=== PATIENT | female | born 1965 | race Caucasian/White ===

== ENCOUNTER → 2019-06-14 13:00 | Outpatient (CLI) | payer BC, SELFPAY ==
--- NOTE | 2019-06-14 13:06 | BI_ITS ---
MAMMOGRAPHY - BILATERAL SCREENING REASON FOR EXAM: Female, 54 years old. Routine annual screening examination. PERTINENT HISTORY: Non-contributory. TECHNIQUE: Digital bilateral breast miguel (3D mammographic acquisition) in the CC and MLO projections. 2-D mediolateral oblique (MLO) and craniocaudad (CC) views of both breasts were obtained. CAD: Full Field Digital Mammography with Computer Added Detection was performed. COMPARISON: Comparison is made with prior examination dated September 23, 2016. FINDINGS: Breast Composition: There are scattered areas of fibroglandular density. There are no dominant masses or suspicious calcifications. Stable small benign-appearing bilateral axillary lymph nodes. No other significant abnormalities are identified. There has been no significant change since the prior study. BI/SCREEN MAMM (CAD) W/MIGUEL BILAT IMPRESSION: Stable bilateral screening mammogram. Yearly follow-up mammogram recommended. (A) ASSESSMENT CATEGORY: BIRADS Category 2: Benign. A letter regarding these results will be sent to the patient by the facility within 30 days. Approximately 10% of breast cancers are not detected by mammography. A normal mammogram should not delay biopsy of a clinically suspicious abnormality. [id number] Electronically Signed: Luis Fernando Brewer, at 14:10 EST , Service support ,
== END ==
PROVIDERS: Family Provider Family Medicine; PCP Family Medicine; Referring Provider Obstetrics & Gynecology; Visit Provider Obstetrics & Gynecology
DX: Z12.31 Encounter for screening mammogram for malignant neoplasm of breast (principal)
CPT/HCPCS: 77063; 77067

== ENCOUNTER → 2020-07-28 14:33 | Outpatient (CLI) | payer OTHER, SELFPAY ==
[2017-08-16 12:33] VITALS: BMI 28.7
[2020-08-01 20:24] LABS: HPV APTIMA, High Risk Negative (Negative)
== END ==
PROVIDERS: Visit Provider Student in an Organized Health Care Education/Training Program
DX: Z12.4 Encounter for screening for malignant neoplasm of cervix (principal)
CPT/HCPCS: 87624; 88175; G0145

== ENCOUNTER → 2023-09-15 | Outpatient (CLI) | payer OTHER, SELFPAY ==
--- NOTE | 2023-09-15 15:05 | RAD_ITS ---
STUDY: X-RAY - LUMBAR SPINE REASON FOR EXAM: Female, 58 years old. Lumbar radiculopathy. TECHNIQUE: 3 view(s) of the lumbar spine were obtained. COMPARISON: None FINDINGS: Mild osteopenia. Normal lumbar lordosis. Marked rotatory thoracolumbar scoliosis. Normal alignment of the vertebral bodies. Diffuse lower thoracic and lumbosacral facet sclerosis. Intervertebral disc space narrowing diffusely but most marked at L1-2 through L5-S1. Small osteophytes at L4-5 and L5-S1. Normal soft tissues. RAD/Lumbar Spine 2 or 3 Views IMPRESSION: Mild osteopenia with diffuse moderate to marked lower thoracic and lumbosacral scoliosis with mild lumbosacral spondylosis as described. Electronically Signed: Jeff Lyman MD at 15:56 EDT ,
== END | disposition home or self-care (01) ==
LOC: RAD 15:01
PROVIDERS: Referring Provider Anesthesiology Pain Medicine; Visit Provider Anesthesiology Pain Medicine
DX: M54.16 Radiculopathy, lumbar region (principal)
CPT/HCPCS: 72100

== ENCOUNTER → 2023-11-10 | Outpatient (CLI) | payer OTHER, SELFPAY | END | disposition home or self-care (01) | PROVIDERS: Referring Provider Anesthesiology Pain Medicine; Visit Provider Anesthesiology Pain Medicine | DX: M54.16 Radiculopathy, lumbar region (principal) | CPT/HCPCS: 72148 ==

== ENCOUNTER 2024-09-10 09:02 | Outpatient (RCR) | payer OTHER, SELFPAY ==
--- NOTE | 2024-09-13 14:09 | HP.PTEVAL ---
Patient's Visit Information Visit Information Visit Information: JOYCELYN GARCIA is a 59 year old F referred to Physical Therapy by Dr. Leonardo Aly MD with a diagnosis of lumbar scoliosis. Date of Evaluation: 09/10/24 Physical Therapist: Iain England DPT Visit Plan Frequency: 1x/Week Duration: 6 Weeks Plan: 1) core strengthening in neutral spine, focus on TA contraction and adding in progressive resistances 2) lumbar spine mobility, REIL and prayer stretching, cat cow Pt. to trial this on her own for the next few weeks prior to seeing physician for injection. Subjective Subjective: Pt. is here today for her initial evaluation with diagnosis of lumbar scoliosis. Pt. reports increased pain for a few years now. Pt. reports no N/T in her LEs. Pt. reports her legs are not giving out on her. Pt. reports that surgeon did not recommend surgery at this point in time. She is following up with pain management about having injection. Pt. that typically she will walk for 15' min then have to flexed fwrd to reduce symptoms. Pt. does some aerobic exercises at home with good tolernace. Pt. is hopeful to reduce symptoms in order to get back to all recreational and work activities without limitations. Pain Lumbar spine: Pain Intensity (Out of 10): 3 Pain Intensity Range: 2 and 5 Objective Objective: POSTURE: Pt. has marked lumbar scoliosis with slight R lateral lean. Pt. has slight elevated R iliac crest. PALPATION: Pt. has tenderness at L4 and L5 with spring testing. Pt. has marked hypomobility with this a well. No pain with gluteal pressure and no pain at SI region bilaterally. NEURO: Pt. has marked loss of sensation at L lateral distal LE. Pt. has slight decreased 1+ on L patellar. ROM: LUMBAR SPINE: fleixon nil loss NE, ext mod loss increase NW, SB R min loss NE, SB L mod loss increase NW. Pt. has normal HS length. MMT: pt. has good strength throughout BLEs, except core strength fair-. and 4/5 L DF. GAIT: pt. has fairly normal gait pattern. Marked foot slap with LLE, indicating limited DF control. STAIRS: normal Balance/Special Test Scores Oswestry Low Back Score: 20 Goals Goal 1:: LTG: pt. to be I with HEP. Goal Time Frame: 4-6 Weeks Goal 2:: STG: Pt. to sleep throughout the night without increase in symptoms. Goal Time Frame: 2-4 Weeks Goal 3:: LTG: pt. to have increased core and hip strength to 5/5 throughout. Goal Time Frame: 4-6 Weeks Goal 4:: LTG: Pt. to walk for more the 15'+ without increase in lumbar spine symptoms. Goal Time Frame: 4-6 Weeks Rehabilitation Potential Physical Therapy Diagnosis: Pt. has signs and symptoms consist with lumbar scoliosis. pt. has increased pain into her lumbar spine and SI region. Pt. has marked core weakness and ROM loss. Pt. would benefit from PT to address the above limitations progressing back to all previous activities Rehabilitation Potential: Good Anticipated Interventions Patient/Client Instruction: Educate patient on: Condition, Plan of Care, Risk Factors and Benefits of Fitness Program For the Purpose of:: To improve decision making, To facilitate caregiver knowledge, To improve self management, To prevent re-injury and To improve ability to perform tasks related to life management Therapeutic Exercise to Include: Strength training, Power training, Endurance training and Flexibilty training For the Purpose of:: To decrease pain, To decrease swelling/inflammation, To increase ROM, To improve nutrient delivery to tissue, To increase oxygenation perfusion, To improve muscle performance and motor function, To improve ability of physical actions for home/community/work/leisure, To improve gait and locomotor functions, To decrease soft tissue restriction and To increase flexibility/ROM Text: Thank you for the opportunity to evaluate your patient. For Medicare and Medicare HMO plans, please review the plan of care and approve it. It will need to be FAXED BACK to us at [phone] for Medicare purposes. For Medicare only, by signing this I certify the plan of care. Please let me know if there are questions or concerns regarding this plan of care. Physician Signature: Date:
== END 2024-09-10 19:00 | disposition home or self-care (01) ==
LOC: PT 09:02
PROVIDERS: Referring Provider Orthopaedic Surgery Orthopaedic Surgery of the Spine; Visit Provider Orthopaedic Surgery Orthopaedic Surgery of the Spine
DX: M41.9 Scoliosis, unspecified (principal)
CPT/HCPCS: 97161

== ENCOUNTER 2024-12-04 21:37 | Emergency (ER) | payer OTHER, SELFPAY ==
[2024-12-04 21:38] VITALS: BP 140/79; PULSE 86; RESP 18; TEMP 36.6; O2SAT 98; BMI 27.0
[2024-12-04] MEDS: Tetracaine 0.5% Ophthalmic Bottle 1 DRP RIGHT EYE (22:00)
--- OUTSIDE RECORDS SUMMARY | 2024-12-04 22:09 | XMS RPT_ITS | CCD ---
Author Organization [facility] Care Team Providers Care Tier Lift Truck Operator Name Role Phone Sukhdeep Modi Unavailable [phone] Now Nurse Unavailable Unavailable Ena Luna LPN Unavailable Unavailab le Ena Luna LPN Unavailable Unavailab le Frank Hutchison Attending Unavailable Care Physician, No Primary Primary Care Unava ilable Care Physician, No Primary Primary Care Unava ilable Maria Luisa Mendoza Attending Unavailable Basalcharu Ayman Referring Unavailable Leonardo Aly Attending Unavailable Leonardo Aly Referring Unavailable Care Physician, No Primary Primary Care Unava ilable Care Physician, No Primary Primary Care Unava ilable Care Physician, No Primary Referring Unava ilable Leonardo Aly Attending Unavailable Allergies Allergy Classification Reported Allergen(s) Allergy Type Date of Onset Reaction(s) Facility (4 sources) levoFLOXacin drug allergy 06-06-2015 [facility] Work Phone: (1 source) levoFLOXacin Drug Allergy 08-16-2017 Other [facility] (1 source) levoFLOXacin Drug Allergy 09-03-2024 [facility] Repository Medications Current Medications Medication Drug Class(es) Dates Sig (Normalized) Sig (Original) [id number] 200 actuat albuterol 0.09 mg/actuat metered dose inhaler (1 source) beta2-Adrenergic Agonist Start: 08-16-2017 take 1 puff(s) by inhalation every six hours Albuterol Sulfate (Proair Hfa) 90 mcg/actuation HFA aerosol inhaler Active 2 PUFF INHALATION EVERY 6 HOURS 6.7 August 16, 2017 12:00am administer with spacer doxycycline monohydrate 100 mg oral capsule (1 source) Tetracycline-clas s Drug Start: 08-16-2017 take 100 mg by mouth twice daily Doxycycline Monohydrate Active 100 MG PO TWICE A DAY August 16, 2017 12:00am Completed/Discontinued Medications Medication Drug Class(es) Dates Sig (Normalized) Sig (Original) NAPROXEN SODIUM CAPS (7 sources) Nonsteroidal Anti-inflammatory Drug Start: 06-06-2015 [facility] CAP[facility] NAPROXEN SODIUM CAPS [id number] Mj Stanford DO Start: 06-06-2015 End: 02-24-2017 ALEVE CAPS 02/24 NAPROXEN SODIUM CAPS [id number] Sukhdeep HURTADO Start: 06-06-2015 End: 02-24-2017 ALEVE CAPS 02/24 NAPROXEN SODIUM CAPS [id number] Sukhdeep HURTADO Start: 06-06-2015 ALEVE CAPS 201 10/31/04 NAPROXEN SODIUM CAPS [id number] Mj Stanford DO predniSONE 20 mg oral tablet (1 source) Start: 08-16-2017 End: 08-23-2017 take 1 dose by mouth once daily at mealtime Prednisone Discontinued 20 MG PO .COMPLEX 10 7 August 16, 2017 12:00am August 23, 2017 12:06am 20 mg PO 2 pills daily x 3 days, then 1 pill daily x 4 days; administer with food or milk SIMETHICONE CHEW (3 sources) Start: 02-24-2017 GAS-X CHEW as directed SIMETHICONE CHEW [id number] Sukhdeep HURTADO Start: 02-24-2017 GAS-X CHEW as directed SIMETHICONE CHEW [id number] Sukhdeep HURTADO Problems Active Problems Problem Classification Problem Date Documented Date Episodic/Chronic Esophageal disorders (3 sources) Gastroesophageal reflux disease; Translations: [Gastro-esophageal reflux disease without esophagitis] Onset: 02-24-2017 02-24-2017 Chronic Other acquired deformities (1 source) Scoliosis, unspecified; Translations: [Scoliosis, unspecified] Onset: 09-03-2024 Chronic Unclassified (1 source) Low back pain, unspecified; Translations: [Low back pain, unspecified] Onset: 09-03-2024 Past or Other Problems Problem Classification Problem Date Documented Da te Episodic/Chronic Abdominal pain (3 sources) Epigastric pain; Translations: [Epigastric pain] Onset: 02-24-2017 02-24-2017 Episodic Spondylosis; intervertebral disc disorders; other back problems (1 source) Radiculopathy, lumbar region; Translations: [Radiculopathy, lumbar region] Onset: 11-19-2023 Episodic Unclassified (3 sources) Adult health examination ; Translations: [Encounter for general adult medical examination without abnormal findings] Onset: 06-06-2015 Resolved: 06-09-2015 06-06-2015 Results Test Name Value Interpretation Reference Range Facility Inital Evaluation (1) - PTon 09-13-2024 Inital Evaluation (1) - PT [facility] Physical Therapy [facility] [address] [place] [address] / REHABILITATION SERVICES INITIAL EVALUATION MR#: [id number] Acct: [id number] Name: KELLEY BARROS Rep #: [id number] : 1965 59 From: Iain BANUELOST Referring Dr.: Dr. Leonardo Aly MD Status: REG RCR Insurance: [facility] PACKAGE PLAN Patient's Visit Information Visit Information Visit Information: KELLEY BARROS is a 59 year old F referred to Physical Therapy by Dr. Leonardo Aly MD with a diagnosis of lumbar scoliosis. Date of Evaluation: 09/10/24 Physical Therapist: Iain England DPT Visit Plan Frequency: 1x/Week Duration: 6 Weeks Plan: 1) core strengthening in neutral spine, focus on TA contraction and adding in progressive resistances 2) lumbar spine mobility, REIL and prayer stretching, cat cow Pt. to trial this on her own for the next few weeks prior to seeing physician for injection. Subjective Subjective: Pt. is here today for her initial evaluation with diagnosis of lumbar scoliosis. Pt. reports increased pain for a few years now. Pt. reports no N/T in her LEs. Pt. reports her legs are not giving out on her. Pt. reports that surgeon did not recommend surgery at this point in time. She is following up with pain management about having injection. Pt. that typically she will walk for 15' min then have to flexed fwrd to reduce symptoms. Pt. does some aerobic exercises at home with good tolernace. Pt. is hopeful to reduce symptoms in order to get back to all recreational and work activities without limitations. Pain Lumbar spine: Pain Intensity (Out of 10): 3 Pain Intensity Range: 2 and 5 Objective Objective: POSTURE: Pt. has marked lumbar scoliosis with slight R lateral lean. Pt. has slight elevated R iliac crest. PALPATION: Pt. has tenderness at L4 and L5 with spring testing. Pt. has marked hypomobility with this a well. No pain with gluteal pressure and no pain at SI region bilaterally. NEURO: Pt. has marked loss of sensation at L lateral distal LE. Pt. has slight decreased 1+ on L patellar. ROM: LUMBAR SPINE: fleixon nil loss NE, ext mod loss increase NW, SB R min loss NE, SB L mod loss increase NW. Pt. has normal HS length. MMT: pt. has good strength throughout BLEs, except core strength fair-. and 4/5 L DF. GAIT: pt. has fairly normal gait pattern. Marked foot slap with LLE, indicating limited DF control. STAIRS: normal Balance/Special Test Scores Oswestry Low Back Score: 20 Goals Goal 1:: LTG: pt. to be I with HEP. Goal Time Frame: 4-6 Weeks Goal 2:: STG: Pt. to sleep throughout the night without increase in symptoms. Goal Time Frame: 2-4 Weeks Goal 3:: LTG: pt. to have increased core and hip strength to 5/5 throughout. Goal Time Frame: 4-6 Weeks Goal 4:: LTG: Pt. to walk for more the 15'+ without increase in lumbar spine symptoms. Goal Time Frame: 4-6 Weeks Rehabilitation Potential Physical Therapy Diagnosis: Pt. has signs and symptoms consist with lumbar scoliosis. pt. has increased pain into her lumbar spine and SI region. Pt. has marked core weakness and ROM loss. Pt. would benefit from PT to address the above limitations progressing back to all previous activities Rehabilitation Potential: Good Anticipated Interventions Patient/Client Instruction: Educate patient on: Condition, Plan of Care, Risk Factors and Benefits of Fitness Program For the Purpose of:: To improve decision making, To facilitate caregiver knowledge, To improve self management, To prevent re-injury and To improve ability to perform tasks related to life management Therapeutic Exercise to Include: Strength training, Power training, Endurance training and Flexibilty training For the Purpose of:: To decrease pain, To decrease swelling/inflammation, To increase ROM, To improve nutrient delivery to tissue, To increase oxygenation perfusion, To improve muscle performance and motor function, To improve ability of physical actions for home/community/work/le isure, To improve gait and locomotor functions, To decrease soft tissue restriction and To increase flexibility/ROM Text: Thank you for the opportunity to evaluate your patient. For Medicare and Medicare HMO plans, please review the plan of care and approve it. It will need to be FAXED BACK to us at [phone] for Medicare purposes. For Medicare only, by signing this I certify the plan of care. Please let me know if there are questions or concerns regarding this plan of care. Physician Signature: Date:__ 09/13/24 1409 CC: Dr. Leonardo Aly MD; No Primary Care Physician CLS Signed Normal [facility] L/S Spine Bending Flex/[place] 09-03-2024 L/S Spine Bending Flex/Ext [facility] [address] [place], [place] [id number] L/S Spine Bending Flex/Ext MR#: [id number] Acct: [id number] Name: KELLEY BARROS Rep #: [id number] : 1965 F 59 From: Mj Somers MD PCP: Care Physician,No Primary Status: DEP AMB Study: L/S Spine Bending Flex/Ext Date of Exam: 09/03 Exam# [id number] Ordering Dr: Franca Tolbert EXAM: XR Lumbosacral Spine Flexion/Extension Only, 2 or 3 Views CLINICAL INDICATION: CHRONIC PAIN TECHNIQUE: Lateral flexion/extension views of the lumbar spine and sacrum. COMPARISON: No relevant prior studies available. FINDINGS: VERTEBRAE: Degenerative facet arthropathy throughout the lumbar spine, most prominent in the lower lumbar spine. Normal sagittal alignment. No acute fracture or significant dynamic instability. SACRUM/COCCYX: Unremarkable as visualized. No acute fracture. DISC SPACES: Degenerative disc disease throughout the lumbar spine. SOFT TISSUES: Unremarkable. RAD/L/S Spine Bending Flex/Ext IMPRESSION: 1. No acute fracture or significant dynamic instability. 2. Degenerative changes lumbar spine as described. Reading Location: [facility] CC: BRYANT Toussaint; No Primary Care Physician Low Pressure Firer: Signed Normal [facility] Orthopedic Visit Reporton Orthopedic Visit Report [facility] [address] [place] [address] OFFICE VISIT Date of Service: 09/03/24 MR#: [id number] Acct: [id number] Name: KELLEY BARROS Rep #: [id number] : 1965 Provider: Dr. Leonardo Aly MD Age/Sex: 59/F Location: [email or web address] Status: Signed Intake Vital Signs 09/03/24 14:46 Height 5 ft 8 in Weight: 195 lb BMI 29.6 Intake Visit Reasons: LUMBAR SPINE Chief Complaint: lumbar spine Is patient in pain?: Yes (lumbar spine) Pain scale (1-10): 7 Allergies levofloxacin (From Levaquin) Allergy (Verified 09/03/24 14:47) Other Medications ???Medication ???Instructions ???Recorded ???Confirmed ???Type ascorbic acid (vitamin C) 125 mg mg PO 09/03/24 09/03/24 History capsule cholecalciferol (vitamin D3) 10 10 mcg PO QDAY 09/03/24 09/03/24 H istory mcg (400 unit) capsule ibuprofen 200 mg capsule 600 mg PO Q6H PRN 09/03/24 5 History magnesium 250 mg tablet 250 mg PO QDAY 09/03/24 09/03/24 H istory zinc gluconate 30 mg tablet 30 mg PO ONCE 09/03/24 09/03/24 Hi story PFSH Family History Mother Hypertension Anxiety Father Aneurysm of gastric artery Anxiety Social History Smoking Status: Never smoker alcohol intake: never HPI LUMBAR SPINE Details: This documentation accurately reflects the service provided and the decisions made by me, Dr. Leonardo Aly MD 09/03/24 3874. Part of today???s visit was documented by Funmi Coombs RN, acting as scribe. KELLEY BARROS is a 59 year old F here today for initial evaluation of lumbar spine pain. She reports a two year history of lumbar spine pain that has progressively been getting worse. She complains of low back pain and a burning sensation. She reports the pain starts in the center of her low back and radiates into her left low back. She is unable to walk long distances, she has to lean over to stretch her back out. After sitting for 20-30 minutes she is unable to stand up straight. She does report numbness and tingling into her toes on both feet. She does see Dr. Mendoza in pain management, she has not done any injections with him yet. Patient didn't want to go through a procedure before getting the injections He did diagnose her with spinal stenosis and scoliosis. She has not done PT. She reports multiple falls from horseback over the years but nothing that required medical attention. She denies any low back surgery. Ortho Exam General General: Yes no acute distress Neurologic: Yes alert and Yes oriented x3 Spine SPINE TESTING CERVICAL THORACIC LUMBAR Musculoskeletal Strength 0=absent - 5=normal Details: Examination the back shows midline left paraspinal tenderness. Neurologic motion lower extremity shows 5 x 5 power normal shows normal sensations in all dermatomes. There is no hyperreflexia. Coding Level of Care Code Off vis,new,level 4 Diagnoses Other idiopathic scoliosis, lumbar region M41.26 Scoliosis type: idiopathic Idiopathic scoliosis type: other Spinal stenosis of lumbar region with neurogenic claudication M48.062 Time Spent (min) 45 Assessment and Plan Assessment and Plan (1) Lumbar scoliosis: Status: Acute Qualifiers: Scoliosis type: idiopathic Idiopathic scoliosis type: other Qualified Code(s): M41.26 - Other idiopathic scoliosis, lumbar region (2) Spinal stenosis of lumbar region with neurogenic claudication: Status: Acute Orders: Orders L/S Spine Bending Flex/Ext Today BRYANT Toussaint M54.50 - Low back pain, unspecified Referrals Physical Therapy Referral Dr. Leonardo Aly MD M41.9 - Scoliosis, unspecified Plan Obtain x-rays flexion-extension views today in the clinic and reviewed previous x-rays and MRI from last year. X-rays show lumbar idiopathic scoliosis with apex at L2 with small compensatory curvature in thoracic spine as well. Left L5-S1 facet joint shows significant sclerosis. L5-S1 disc height reduction noticed along with vacuum phenomenon extension view. No dynamic instability on flexion-extension views. MRI shows left L5-S1 foraminal stenosis. No significant central stenosis noticed. Patient is here today for lumbar spine pain. Patient states that she has had left lower lumbar pain going around the pelvis to the lateral aspect of the pelvis. She denies any radiating pain into the lower extremities. Her left foot flops a lot. 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 The pain hurts so bad that it can stop her from doing things. Walking distances is a problem. I examed the patient's strength today. Patient does having trouble balancing sometimes. I went over the xray results with the patient today. Patient has significant lumba (more content not included)... Normal [facility] Spine Lumbar (Routine)on Spine Lumbar (Routine) [facility] [address] [place], [place] [address] Spine Lumbar (Routine) MR#: [id number] Acct: [id number] Name: KELLEY BARROS Rep #: [id number] : 1965 F 58 From: Tawana mcgovern MD PCP: Care Physician,No Primary Status: REG CLI Study: Spine Lumbar (Routine) Date of Exam: 11/10/23 Exam# [id number] Ordering Dr: Maria Luisa Mendoza MD [id number] HISTORY: Radiculopathy into left hip. TECHNIQUE: Multiplanar and multisequence MR images of the lumbar spine were obtained without intravenous contrast. 181 images. COMPARISON: CR 09/15/2023, MR 02/19/2014. FINDINGS: VERTEBRAE: Vertebral body heights maintained. Mild degenerative endplate changes of L4-5 and L5-S1. No other significant bone marrow signal abnormality. ALIGNMENT: No anterior or posterior subluxation. Moderate lumbar levoscoliosis, progressed from prior MRI. CONUS: Normal morphology and position of the conus medullaris at L1. INTERVERTEBRAL DISCS: T12-L1: Very mild disc bulge and facet arthropathy without significant central canal stenosis or foraminal narrowing. L1-2, L2-3: Mild disc bulges with facet arthropathy resulting in mild right foraminal narrowing. No significant central canal stenosis. L3-4, L4-5: Mild posterior disc bulge osteophyte complexes with facet arthropathy resulting in mild bilateral foraminal narrowing. No significant central canal stenosis. L5-S1: Mild posterior disc bulge osteophyte complex eccentric to the left with facet arthropathy resulting in increased moderate-severe left foraminal narrowing with left L5 nerve root abutment and moderate right foraminal narrowing. No significant central canal stenosis. SOFT TISSUES: No paraspinal fluid collection. Colonic diverticulosis observed. MRI/Spine Lumbar (Routine) IMPRESSION: Mild multilevel degenerative disc disease with moderate scoliosis. No significant spinal canal stenosis. Moderate-severe left foraminal narrowing with left nerve root abutment and moderate right foraminal narrowing at L5-S1. Electronically Signed: Tawana Villegas MD at 14:04 EDT , CC: Dr. Maria Luisa Mendoza MD; No Primary Care Physician Low Pressure Firer: Signed Normal [facility] CNCOon 10-21-2018 CNCO Letter Text Normal [facility] CNOVon 06-01-2018 CNOV Office Visit (UCWSTR ) KELLEY BARROS ([id number]) 1965 F Date Time Provider Department 06/01/18 3:[address] [facility] During your visit today, we recorded the following information about you: Temperature Pulse Respiration Blood pressure 97.9 degrees 66/minute 16/minute 122/80 Weight 86.7 kg Brice Jj MD 06/01/2018 4:29 PM Signed Patient presents with: chest congestion and swollen glands: has been having these symptoms for months HPI: Feeling chest congestion for few months. Trouble producing mucus the last couple weeks. Positive symptoms: neck glands feel swollen, dyspnea with exertion, Wheezing, Chest tightness, feels like a hair in her throat for a 1-2 weeks, intermittent Sinus pressure, Nasal Congestion, Post nasal drainage, Negative symptoms: Sore throat, Fever, OTC: Robitussin, not using inhaler PHx of smoking. She has been treated for breathing issues in the ER in the past. PAST MEDICAL HISTORY Diagnosis Date - History of smoking PAST SURGICAL HISTORY Procedure Laterality Date - NONE MEDICATIONS: No current outpatient prescriptions on file. No current facility-administered medications for this visit. ALLERGIES: ALLERGIES No Known Allergies VITALS: BP 122/80 Pulse 66 Temp 36.6 ?C (97.9 ?F) (Tympanic) Resp 16 Wt 86.7 kg (191 lb 3.2 oz) SpO2 99% PHYSICAL EXAM: GEN: mildly ill appearing HEENT: PERRL, EOMI, conjunctiva clear Ears: canals clear, TMs without erythema, bulge, or effusion Sinuses: non-tender frontal sinus, non-tender maxillary sinuses Throat: moist mucous membranes, mild erythema, no exudate Neck: supple, no thyromegaly, no lymphadenopathy HEART: regular rate and rhythm, no murmurs LUNGS: clear to auscultation, no wheezes or crackles, no increased WOB ASSESSMENT/PLAN: 1. Cough - ICD9: 786.2, ICD10: R05 (primary diagnosis) 2. Hx of smoking - ICD9: V15.82, ICD10: Z87.891 - XR CHEST 2V FRONTAL/LAT - negative. COPD exacerbated by URI. - PREDNISONE 10 MG TABLET taper - AZITHROMYCIN 250 MG TABLET F/u if worsening or not improving. F/u with ENT if deep throat foreign sensation is not improving. Brice Jj MD Referring Provider: SELF [200] Allergies As of Date: 06/01/2018 (No Known Allergies) Date Reviewed: 06/01/2018 Reviewed by: Sofia Mckeon LPN - Fully Assessed Reason for Visit: chest congestion and swollen glands [Other] Cmt: has been having these symptoms for months Primary Visit Diagnosis:Cough [R05] Other Visit Diagnosis:Hx of smoking [Z87.891] Order(s):XR CHEST 2V FRONTAL/LAT [[id number]] Order #: [id number] FUTURE predniSONE (DELTASONE) 10 mg tabletTake by mouth 5 pills on day 1, 4 pills on day 2, 3 pills on day 3, 2 pills on day 4, 1 pill on day 5.Disp: 15 tabletRfl: 0 azithromycin (ZITHROMAX Z-CISCO) 250 mg tabletTake 2 tablets day one, then, 1 tablet daily until gone.Disp: 1 PackageRfl: 0 Prescriptions as of 06/01/2018 Sig: AZITHROMYCIN 250 MG TABLET Take 2 tablets day one, then,* PREDNISONE 10 MG TABLET Take by mouth 5 pills on day * Problem List As Of Date: 06/01/2018 (None) Prescriptions ordered this encounter Disp Refills Start End PREDNISONE 10 MG TABLET 15 t* 0 06/01/2018 06/06/2018 Sig: Take by mouth 5 pills on day 1, 4 pills on day 2, 3 pills on day 3, 2 pills on day 4, 1 pill on day 5. AZITHROMYCIN 250 MG TABLET 1 Pa* 0 06/01/2018 06/06/2018 Sig: Take 2 tablets day one, then, 1 tablet daily until gone. Encounter Status:Closed by BRICE JJ MD on 06/01/18 [facility] PROGRESSon 06-01-2018 Protein mass conc HNO ID: [id number] Author: Adalgisa Buitrago Rt Service: (none) Author Type: (none) Type: Progress Notes Filed: 06/01/2018 4:17 PM Note Text: Radiology Service Progress Note PATIENT NAME: Kelley Barros DATE OF SERVICE: June 01, 2018 TIME: 4:08 PM PATIENT IDENTITY VERIFICATION COMPLETED USING TWO (2) METHODS: Patient confirmed name verbally and Date of . PATIENT GENDER DATA: Female. status: : No status: NO. PATIENT RELEVANT IMPLANT DATA REVIEWED: Not Applicable RADIOLOGY DEPARTMENT: General X-ray: Exam(s) Completed: Chest X-Ray PERIPHERAL IV DATA: Not applicable SIGNED BY: Adalgisa Minna Rt June 01, 2018 4:08 PM Normal [facility] Protein mass conc HNO ID: [id number] Author: Brice Jj Service: (none) Author Type: Physician Type: Progress Notes Filed: 06/01/2018 4:29 PM Note Text: Patient presents with: chest congestion and swollen glands: has been having these symptoms for months HPI: Feeling chest congestion for few months. Trouble producing mucus the last couple weeks. Positive symptoms: neck glands feel swollen, dyspnea with exertion, Wheezing, Chest tightness, feels like a hair in her throat for a 1-2 weeks, intermittent Sinus pressure, Nasal Congestion, Post nasal drainage, Negative symptoms: Sore throat, Fever, OTC: Robitussin, not using inhaler PHx of smoking. She has been treated for breathing issues in the ER in the past. PAST MEDICAL HISTORY Diagnosis Date - History of smoking PAST SURGICAL HISTORY Procedure Laterality Date - NONE MEDICATIONS: No current outpatient prescriptions on file. No current facility-administered medications for this visit. ALLERGIES: ALLERGIES No Known Allergies VITALS: BP 122/80 Pulse 66 Temp 36.6 ?C (97.9 ?F) (Tympanic) Resp 16 Wt 86.7 kg (191 lb 3.2 oz) SpO2 99% PHYSICAL EXAM: GEN: mildly ill appearing HEENT: PERRL, EOMI, conjunctiva clear Ears: canals clear, TMs without erythema, bulge, or effusion Sinuses: non-tender frontal sinus, non-tender maxillary sinuses Throat: moist mucous membranes, mild erythema, no exudate Neck: supple, no thyromegaly, no lymphadenopathy HEART: regular rate and rhythm, no murmurs LUNGS: clear to auscultation, no wheezes or crackles, no increased WOB ASSESSMENT/PLAN: 1. Cough - ICD9: 786.2, ICD10: R05 (primary diagnosis) 2. Hx of smoking - ICD9: V15.82, ICD10: Z87.891 - XR CHEST 2V FRONTAL/LAT - negative. COPD exacerbated by URI. - PREDNISONE 10 MG TABLET taper - AZITHROMYCIN 250 MG TABLET F/u if worsening or not improving. F/u with ENT if deep throat foreign sensation is not improving. Brice Jj MD Normal [facility] XR CHEST 2V FRONTAL/LATon XR CHEST 2V FRONTAL/LAT * * *Final Report* * * DATE OF EXAM: Jun 01 2018 4:16PM WOX [id number] - XR CHEST 2V FRONTAL/LAT / PROCEDURE REASON: multiple diagnoses * * * * Physician Interpretation * * * * EXAMINATION: CHEST RADIOGRAPH (2 VIEW FRONTAL and LATERAL) CLINICAL HISTORY: Cough Hx of smoking MQ: XC2_5 Comparison: None RESULT: Lines, tubes, and devices: None. Lungs and pleura: There is scarring in the left infrahilar region. No consolidation. No lung mass. No pleural effusion or pneumothorax. Cardiomediastinal silhouette: Normal cardiomediastinal silhouette. Other: There is thoracolumbar scoliosis. IMPRESSION: No acute pulmonary disease. Low Pressure Firer: VAN Transcribe Date/Time: Jun 01 2018 4:36P Dictated by : MARIUSZ KEARNS MD This examination was interpreted and the report reviewed and electronically signed by: MARIUSZ KEARNS MD on Jun 01 2018 4:36PM EST [id number] Normal [facility] EKG Report: [facility] ECG Obse rvationson 02-24-2017 EKG QRS axis 35 deg Invalid Interpretation Code [facility] Work Phone: Interpretation Sinus Rhythm WITHIN NORMAL LIMITS Invalid Interpretation Code [facility] Work Phone: P [place] 51 deg Invalid Interpretation Code [facility] Work Phone: DC Interval 160 ms Invalid Interpretation Code [facility] Work Phone: Pulse (Heart Rate) 60 /min Invalid Interpretation Code [facility] Work Phone: QRS Duration 94 ms Invalid Interpretation Code [facility] Work Phone: QT Interval new path ms Invalid Interpretation Code [facility] Work Phone: QTc Carmen 434 ms Invalid Interpretation Code [facility] Work Phone: T [place] 52 deg Invalid Interpretation Code [facility] Work Phone: Office Visit: UC: epigastric / chest painon 02-24-2017 Documentation of current medications (procedure) Done Invalid Interpretation Code [facility] Work Phone: Fall risk assessment No Invalid Interpretation Code [facility] Work Phone: Protein mass conc Done Invalid Interpretation Code [facility] Work Phone: Tobacco smoking status NHIS Former smoker Invalid Interpretation Code [facility] Work Phone: Tobacco use CPHS Former smoker Invalid Interpretation Code [facility] Work Phone: Office Visit: work peon 0 Documentation of current medications (procedure) Done Invalid Interpretation Code [facility] Work Phone: Tobacco use HS Former smoker Invalid Interpretation Code [facility] Work Phone: Vital Signs Date Time Vital Sign Value Performing Clinician Faci lity 02-24-2017 12:40-0400 BMI (Body Mass Index) 27.76 kg/m2 Sukhdeep HURTADO [facility] Work Phone: 02-24-2017 12:40-0400 Body Temperature 98.1 [degF] Sukhdeep HURTADO [facility] Work Phone: 02-24-2017 12:40-0400 BP Diastolic 74 mm[Hg] Sukhdeep HURTADO [facility] Work Phone: 02-24-2017 12:40-0400 BP Systolic 110 mm[Hg] Sukhdeep HURTADO [facility] Work Phone: 02-24-2017 12:40-0400 Height 172.72 cm Sukhdeep HURTADO [facility] Work Phone: 02-24-2017 12:40-0400 Pulse (Heart Rate) 67 /min Sukhdeep HURTADO [facility] Work Phone: 02-24-2017 12:40-0400 Respiratory Rate 12 /min Sukhdeep HURTADO [facility] Work Phone: 02-24-2017 12:40-0400 Weight 82.83 kg Sukhdeep HURTADO [facility] Work Phone: 06-06-2015 15:07-0500 BMI (Body Mass Index) 26.91 kg/m2 [facility] Work Phone: 06-06-2015 15:07-0500 Body Temperature 97.8 [degF] [facility] Work Phone: 06-06-2015 15:07-0500 BP Diastolic 78 mm[Hg] [facility] Work Phone: 06-06-2015 15:07-0500 BP Systolic 122 mm[Hg] [facility] Work Phone: 06-06-2015 15:07-0500 BSA (Body Surface Area) 1.94 m2 [facility] Work Phone: 06-06-2015 15:07-0500 Height 172.72 cm [facility] Work Phone: 06-06-2015 15:07-0500 Pulse (Heart Rate) 64 /min [facility] Work Phone: 06-06-2015 15:07-0500 Respiratory Rate 16 /min [facility] Work Phone: 06-06-2015 15:07-0500 Weight 80.29 kg [facility] Work Phone: Encounters Encounter Date Encounter Type Care Provider Facility Start: 09-10-2024 ambulatory [facility] Facility:[facility] Start: 09-03-2024 End: 09-03-2024 ambulatory No Primary Care Physician Facility:[facility] Start: 11-10-2023 End: 11-10-2023 ambulatory No Primary Care Physician Facility:[facility] Start: 09-15-2023 End: 09-15-2023 ambulatory [facility] Work Phone: Start: 09-15-2023 End: 09-15-2023 Patient encounter procedure [facility]-Radiology, [facility] Work Phone: Procedures Date Procedure Procedure Detail Performing Clinician Start: 09-15-2023 X-ray of lumbar spin e, two or three views Start: 02-24-2017 End: 02-24-2017 Ecg routine ecg w/least 12 lds w/i&r Sukhdeep HURTADO Work Phone: Start: 02-24-2017 End: 02-24-2017 Urnls dip stick/tablet rgnt non-auto w/o micrscp Sukhdeep HURTADO Work Phone: Start: 02-24-2017 End: 02-24-2017 Electrocardiogram, complete Sukhdeep HURTADO Work Phone: Start: 02-24-2017 End: 02-24-2017 Urinalysis nonauto w/o scope Sukhdeep Kwan PA Work Phone: Start: 06-06-2015 End: 06-09-2015 Adult health examination Well adult exam Ena Luna SANDRA Start: 06-06-2015 End: 06-06-2015 [facility] Work Phone: Start: 06-06-2015 End: 06-06-2015 [facility] Mj A [employer] Work Phone: Plan of Treatment Date Care Activity Detail Author Start: 02-24-2017 End: 02-24-2017 Chest x-ray X-Ray, Chest, PA & Lateral [facility] Work Phone: Start: 02-24-2017 End: 02-24-2017 Appointment Appointment [facility] Work Phone: Start: 02-24-2017 End: 02-24-2017 Chest x-ray X-Ray, Chest, PA [facility] Lateral [facility] Work Phone: Patient Education GASTROESOPHAGE AL%20REFLUX%2 0DISEASE [facility] Work Phone: Payers Date Payer Category Payer Unknown [id number] 2023 Self-pay [id number] 2023 Unknown [id number] Unknown ANTHEM [id number] 16 [id number] Unknown [facility] [id number] 2 [id number] Unknown [id number] [id number] Unknown [id number] 2.16.8 [id number] Unknown [id number] 2.16.8 [id number] Unknown [id number] 2.16.8 [id number] Social History Date Type Detail Facility [facility]: [facility] Start: 1965 Sex Assigned At Female [facility] Evaluation note Note Date & Type Note Facility Evaluation note No assessment information availa ble [facility] Work Phone: Summary Purpose Family History No Family History Records Found Relationship Condition Age at Onset Recorded Date/T joseph mother Hypertension Unknown Anxiety Unknown father Aneurysm of gastric artery Unknown Advance Directives No Advanced Directives Records FoundNo Advanced Directives Records Found Chief Complaint and Reason for Visit Chief Complaint Radiculopathy, lumba r region Additional Source Comments INFORMATION SOURCE (unrecogn ized section and content) DATE CREATED AUTHOR 10/31/2018 [facility] DATE CREATED AUTHOR AUTHOR'S ORGANIZ ATION 09/14/2024 [facility] Care Teams (unrecognized sec tion and content) Team Status: Active Member Role Status Dates Dr. Romeo Araya MD Family Provider Active No Primary Care Physician Primary Care Provider Active Team Status: Inactive Member Role Status Dates No Primary Care Physician Primary Care Provider Active Dr. Maria Luisa Mendoza MD Attending Provider, Referring Pr amara Active Goals (unrecognized section and content) Goals may be documented in a n alternate section FOR RECORDS PERTAINING TO PATIENTS WHO ARE OR HAVE BEEN ENROLLED IN A CHEMICAL DEPENDENCY/SUBSTANCEABUSE PROGRAM, SOME INFORMATION MAY BE OMITTED. This clinical summary was aggregated from multiple sources. Caution should be exercised in using it in the provision of clinical care. This summary normalizes information from multiple sources, and as a consequence, information in this document may materially change the coding, format and clinical context of patient data. In addition, data may be omitted in some cases. CLINICAL DECISIONS SHOULD BE BASED ON THE PRIMARY CLINICAL RECORDS. [employer] [facility]. provides no warranty or guarantee of the accuracy or completeness of information in this document.
--- OUTSIDE RECORDS SUMMARY | 2024-12-04 22:09 | XMS RPT_ITS | CCD ---
Author Organization [facility] ion Partnership [facility] Care Team Providers Care Video Arcade Manager Name Role Phone Sukhdeep Modi Unavailable [phone] Now Nurse Unavailable Unavailable Ena Luna [...] Facility (4 sources) levoFLOXacin [facility]2015 [facility] Work Phone: (1 source) levoFLOXacin Drug Allergy 08-16-2017 Other [facility] (1 source) levoFLOXacin Drug Allergy 09-03-2024 [facility] Repository Medications Current Medications Medication Drug Class(es) Dates Sig (Normalized) Sig (Original) [id number] 200 actuat albuterol 0.09 mg/actuat metered dose [...] Start: 06-06-2015 [facility] NAPROXEN SODIUM CAPS [id number] Mj Stanford DO Start: 06-06-2015 End: 02-24-2017 ALEVE CAPS 02/24 NAPROXEN SODIUM CAPS [id number] Sukhdeep HURTADO Start: 06-06-2015 End: 02-24-2017 ALEVE CAPS 02/24 NAPROXEN SODIUM CAPS [id number] Sukhdeep HURTADO Start: 06-06-2015 ALEVE CAPS 201 10/31/04 NAPROXEN SODIUM CAPS [id number] Mj Stanford DO predniSONE 20 mg oral [...] 02-24-2017 GAS-X CHEW as directed SIMETHICONE CHEW [id number] Sukhdeep HURTADO Start: 02-24-2017 GAS-X CHEW as directed SIMETHICONE CHEW [id number] Sukhdeep HURTADO Problems Active Problems Problem Classification [...] PTon 09-13-2024 Inital Evaluation (1) - PT [facility] Physical Therapy [facility] [address] [place] [address] / REHABILITATION SERVICES INITIAL EVALUATION MR#: [id number] Acct: [id number] Name: KELLEY BARROS Rep #: [id number] : 1965 59 From: Iain BANUELOST Referring Dr.: Dr. Leonardo Aly MD Status: REG RCR Insurance: [facility] [employer] Patient's Visit Information [...] to be FAXED BACK to us at [phone] for Medicare purposes. For Medicare only, by signing this I certify the plan of care. Please let me know if there are questions or concerns regarding this plan of care. Physician Signature: Date:__ 09/13/24 1409 CC: Dr. Leonardo Aly MD; No Primary Care Physician CLS Signed Normal [facility] L/S Spine Bending Flex/[place] 09-03-2024 L/S Spine Bending Flex/Ext [facility] [address] [place], [place] [id number] L/S Spine Bending Flex/Ext MR#: [id number] Acct: [id number] Name: KELLEY BARROS Rep #: [id number] : 1965 F 59 From: Mj Somers MD PCP: Care Physician,No Primary Status: DEP AMB Study: L/S Spine Bending Flex/Ext Date of Exam: 09/03 Exam# [id number] Ordering Dr: Franca Tolbert EXAM: XR Lumbosacral [...] changes lumbar spine as described. Reading Location: [id number] CC: BRYANT Toussaint; No Primary Care Physician Instructional Technology Director: Signed Normal [facility] Orthopedic Visit Reporton Orthopedic Visit Report [facility] [address] [place] [address] OFFICE VISIT Date of Service: 09/03/24 MR#: [id number] Acct: [id number] Name: KELLEY BARROS Rep #: [id number] : 1965 Provider: Dr. Leonardo Aly MD Age/Sex: 59/F Location: [email or web address] Status: Signed Intake Vital Signs 09/03/24 14:46 [...] by me, Dr. Leonardo Aly MD 09/03/24 0394. Part of today???s visit was documented by [...] left foot flops a lot. 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 The pain hurts so bad that it can stop her from doing things. Walking distances is a problem. I examed the patient's strength today. Patient does having trouble balancing sometimes. I went over the xray results with the patient today. Patient has significant lumba (more content not included)... Normal [facility] Spine Lumbar (Routine)on Spine Lumbar (Routine) [facility] [address], [place] [address] Spine Lumbar (Routine) MR#: [id number] Acct: [id number] Name: KELLEY BARROS Rep #: [id number] : 1965 F 58 From: Tawana mcgovern MD PCP: Care Physician,No Primary Status: REG CLI Study: Spine Lumbar (Routine) Date of Exam: 11/10/23 Exam# [id number] Ordering Dr: Maria Luisa Mendoza MD [id number] HISTORY: Radiculopathy into left hip. TECHNIQUE: Multiplanar [...] Luisa Mendoza MD; No Primary Care Physician Instructional Technology Director: Signed Normal [facility] CNCOon 10-21-2018 CNCO Letter Text Normal [facility] CNOVon 06-01-2018 CNOV Office Visit (UCWSTR ) KELLEY BARROS ([id number]) 1965 F Date Time Provider Department 06/01/18 3:15 PM BRICE JJ [facility] During your visit today, we recorded [...] of smoking [Z87.891] Order(s):XR CHEST 2V FRONTAL/LAT [4303121] Order #: [id number] FUTURE predniSONE (DELTASONE) 10 mg tabletTake by [...] Status:Closed by BRICE JJ MD on 06/01/18 [facility] PROGRESSon 06-01-2018 Protein mass conc HNO ID: [id number] Author: Adalgisa Buitrago Rt Service: (none) Author [...] Rt June 01, 2018 4:[address] [facility] Protein mass conc HNO ID: [id number] Author: Brice Jj Service: (none) Author Type: [...] is not improving. Brice Jj MD Normal [facility] XR CHEST 2V FRONTAL/LATon XR CHEST [...] thoracolumbar scoliosis. IMPRESSION: No acute pulmonary disease. Instructional Technology Director: VAN Transcribe Date/Time: Jun 01 2018 4:36P Dictated by : MARIUSZ KEARNS MD This examination was interpreted and the report reviewed and electronically signed by: MARIUSZ KEARNS MD on Jun 01 2018 4:36PM EST [id number] Normal [facility] EKG Report: [facility] ECG Obse rvationson 02-24-2017 EKG QRS axis 35 deg Invalid Interpretation Code [facility] Work Phone: Interpretation Sinus Rhythm WITHIN NORMAL LIMITS Invalid Interpretation Code [facility] Work Phone: P [place] 51 deg Invalid Interpretation Code [facility] Work Phone: [place] Interval 160 ms Invalid Interpretation Code [facility] Work Phone: Pulse (Heart Rate) 60 /min Invalid Interpretation Code [facility] Work Phone: QRS Duration 94 ms Invalid Interpretation Code [facility] Work Phone: QT Interval new path ms Invalid Interpretation Code [facility] Work Phone: QTc [place] 434 ms Invalid Interpretation Code [facility] Work Phone: T [place] 52 deg Invalid Interpretation Code [facility] Work Phone: Office Visit: UC: epigastric / chest painon 02-24-2017 Documentation of current medications (procedure) Done Invalid Interpretation Code [facility] Work Phone: Fall risk assessment No Invalid Interpretation Code [facility] Work Phone: Protein mass conc Done Invalid Interpretation Code [facility] Work Phone: Tobacco smoking status NHIS Former smoker Invalid Interpretation Code [facility] Work Phone: Tobacco use CPHS Former smoker Invalid Interpretation Code [facility] Work Phone: Office Visit: work peon 0 Documentation of current medications (procedure) Done Invalid Interpretation Code [facility] Work Phone: Tobacco use HS Former smoker Invalid Interpretation Code [facility] Work Phone: Vital Signs Date Time Vital Sign Value Performing Clinician Faci lity 02-24-2017 12:40-0400 BMI (Body Mass Index) 27.76 kg/m2 Sukhdeep HURTADO [facility] Work Phone: 02-24-2017 12:40-0400 Body Temperature 98.1 [degF] Sukhdeep HURTADO [facility] Work Phone: 02-24-2017 12:40-0400 BP Diastolic 74 mm[Hg] uSkhdeep HURTADO [facility] Work Phone: 02-24-2017 12:40-0400 BP Systolic 110 mm[Hg] Sukhdeep HURTADO [facility] Work Phone: 02-24-2017 12:40-0400 Height 172.72 cm Sukhdeep HURTADO [facility] Work Phone: 02-24-2017 12:40-0400 Pulse (Heart Rate) 67 /min Sukhdeep HURTADO [facility] Work Phone: 02-24-2017 12:40-0400 Respiratory Rate 12 /min Sukhdeep HURTADO [facility] Work Phone: 02-24-2017 12:40-0400 Weight 82.83 kg Sukhdeep HURTADO [facility] Work Phone: 06-06-2015 15:07-0500 BMI (Body Mass Index) 26.91 kg/m2 [facility] Work Phone: 06-06-2015 15:07-0500 Body Temperature 97.8 [degF] [facility] Work Phone: 06-06-2015 15:07-0500 BP Diastolic 78 mm[Hg] [facility] Work Phone: 06-06-2015 15:07-0500 BP Systolic 122 mm[Hg] [facility] Work Phone: 06-06-2015 15:07-0500 BSA (Body Surface Area) 1.94 m2 [facility] Work Phone: 06-06-2015 15:07-0500 Height 172.72 cm [facility] Work Phone: 06-06-2015 15:07-0500 Pulse (Heart Rate) 64 /min [facility] Work Phone: 06-06-2015 15:07-0500 Respiratory Rate 16 /min [facility] Work Phone: 06-06-2015 15:07-0500 Weight 80.29 kg [facility] Work Phone: Encounters Encounter Date Encounter Type Care Provider Facility Start: 09-10-2024 ambulatory [facility] Facility:[facility] Start: 09-03-2024 End: 09-03-2024 ambulatory No Primary Care Physician Facility:[facility] Start: 11-10-2023 End: 11-10-2023 ambulatory No Primary Care Physician Facility:[facility] Start: 09-15-2023 End: 09-15-2023 ambulatory [facility] Work Phone: Start: 09-15-2023 End: 09-15-2023 Patient encounter procedure [facility]-Radiology, [facility] Work Phone: Procedures Date Procedure Procedure Detail [...] Luna SANDRA Start: 06-06-2015 End: 06-06-2015 Wellness [facility] Work Phone: Start: 06-06-2015 End: 06-06-2015 [facility]ness [facility] Work Phone: Plan of Treatment Date Care Activity Detail Author Start: 02-24-2017 End: 02-24-2017 Chest x-ray X-Ray, Chest, PA & Lateral [facility] Work Phone: Start: 02-24-2017 End: 02-24-2017 Appointment Appointment [facility] Work Phone: Start: 02-24-2017 End: 02-24-2017 Chest x-ray X-Ray, Chest, PA & Lateral [facility] Work Phone: Patient Education GASTROESOPHAGE AL%20REFLUX%2 0DISEASE [facility] Work Phone: Payers Date Payer Category Payer Unknown [id number] 2023 Self-pay [id number] 2023 Unknown [id number] Unknown ANTHEM [id number] 16 [id number] Unknown [facility] [id number] 2 [id number] Unknown [id number] 2.16.8 [id number] Unknown [id number] 2.16.8 [id number] Unknown [id number] 2.16.8 [id number] Unknown [id number] 2.16.8 [id number] Social History Date Type Detail Facility [facility]: [facility] Start: 1965 Sex Assigned At Female [facility] Evaluation note Note Date & Type Note Facility Evaluation note No assessment information availa ble [facility] Work Phone: Summary Purpose Family History No [...] section and content) DATE CREATED AUTHOR 10/31/2018 [facility] DATE CREATED AUTHOR AUTHOR'S ORGANIZ ATION 09/14/2024 [facility] Care Teams (unrecognized sec tion and content) [...] BE BASED ON THE PRIMARY CLINICAL RECORDS. [employer] [facility]. provides no warranty or guarantee of the accuracy or completeness of information in this document.
--- NOTE | 2024-12-04 22:45 | CT_ITS ---
EXAM: BRAIN/HEAD WITHOUT CONTRAST CLINICAL HISTORY: 59 y/o F with RIGHT EYE VISION CHANGE. COMPARISON: None. TECHNIQUE: Routine CT imaging of the head without IV contrast. Additional multiplanar reformats were obtained. Dose reduction techniques were used including intermediate exposure control (AEC),iterative reconstruction technique, and/or mA and/or KV dose adjustments based on patient's size. FINDINGS: The ventricles, sulci and cisterns are normal for patient age. There is no evidence of acute intracranial hemorrhage or herniation. There is no midline shift, mass effect, or extra-axial collection. Mild scattered supratentorial white matter hypodensities. The garvin and white matter interfaces are otherwise maintained. The orbits, visualized paranasal sinuses and mastoids are unremarkable. No acute calvarial fracture or scalp hematoma. CT/Brain/Head without Contrast IMPRESSION: No acute intracranial finding. Reading Location: [id number]
--- NOTE | 2024-12-04 22:45 | CT_ITS ---
EXAM: BRAIN/HEAD WITHOUT CONTRAST CLINICAL HISTORY: 59 y/o F with RIGHT EYE VISION CHANGE. COMPARISON: None. TECHNIQUE: Routine CT imaging of the head without IV contrast. Additional multiplanar reformats were obtained. Dose reduction techniques were used including intermediate exposure control (AEC),iterative reconstruction technique, and/or mA and/or KV dose adjustments based on patient's size. FINDINGS: The ventricles, sulci and cisterns are normal for patient age. There is no evidence of acute intracranial hemorrhage or herniation. There is no midline shift, mass effect, or extra-axial collection. Mild scattered supratentorial white matter hypodensities. The garvin and white matter interfaces are otherwise maintained. The orbits, visualized paranasal sinuses and mastoids are unremarkable. No acute calvarial fracture or scalp hematoma. CT/Brain/Head without Contrast IMPRESSION: No acute intracranial finding. Reading Location: [id number]
--- NOTE | 2024-12-04 23:22 | EX.ED.VIS.EY ---
HPI History of Present Illness Chief Complaint: Eye Problem Narrative Narrative: Patient is a 59-year-old female with no known significant past medical history who presented to the emergency department change in vision out of her right eye. States that last evening she was sitting on the deck and noted that she noted that she had floaters in her right eye and flashes as well. States that she is periodically getting what appears to be looking out of a teardrop on the lateral aspect of her vision out of her right eye. Patient denies any other symptoms denies any trauma denies any eye pain. PFSH PFSH Home Medications ?Medication ?Instructions ?Recorded ?Last Taken ?Type NK 12/04/24 Unknown History Allergy/AdvReac Type Severity Reaction Status Date / Time levofloxacin (From Levaquin) Allergy Other Verified 12/04/24 21:39 Family History Mother Hypertension Anxiety Father Aneurysm of gastric artery Anxiety Social History Smoking Status: Former smoker alcohol intake: never ROS ROS ED ROS Narrative Constitutional: Denies any fevers, chills, headaches Eyes: Complains of change in vision as noted above Cardiovascular: Denies chest pain Respiratory: Denies shortness of breath Abdomen: Denies nausea vomiting diarrhea Neurological: Denies any numbness, weeks, tingling Musculoskeletal: Denies back pain Skin: Denies any rashes or lesions EXAM Physical Exam Narrative Exam Narrative: General: Patient lying in bed rest comfortably did not appear to be acute distress Head: Atraumatic, normocephalic Eyes: PERRL bilaterally, EOMI by, no conjunctival injection noted Neck: Soft, supple, trachea midline Cardiovascular: Regular rate and rhythm no murmurs gallops rubs are noted Respiratory: Clear to auscultation bilaterally Abdomen: Soft, nondistended, tender to palpation Extremities: +5/5 strength noted in the bilateral upper and lower extremities, radial pulses +2/4 in the bilateral extremities, no pedal edema on exam Neurological: Patient follow commands and that she was at [facility] years 2024. NIH of 0 GCS 15 Skin: Warm, dry, intact no rashes or lesions noted Const Vital Signs: 12/04/24 21:38 Temperature 98 F Temperature Source Oral Pulse Rate 86 Respiratory Rate 18 Blood Pressure 140/79 H Blood Pressure Mean 99 Pulse Ox 98 Oxygen Delivery Method Room Air MDM MDM MDM Narrative Medical decision making narrative: Patient is a 59-year-old female who presented to the emergency department the chief complaint of flashes and floaters out of her right eye. On the differential diagnosis includes but not limited to retinal detachment, central retinal artery occlusion, central retinal vein occlusion, acute angle-closure glaucoma. Once workup is obtained reviewed she will be reevaluated. Patient had her eye anesthetized with tetracaine followed by fluorescein stain. No evidence of corneal abrasion. Intraocular pressure was normal at 14. Bedside ultrasound was performed and showed no evidence of large retinal detachment. Patient visual acuity test on the right eye was 20/15 out of the left eye was 20/20 Called on-call case finishing machine adjuster Dr. Mariscal who states that she can call the office on Friday and they will get her in to be evaluated. Patient CT head was reviewed and showed no acute intracranial processes. Discussed results with the patient she would like to go home at this point in time. She once again was advised to follow-up with the case finishing machine adjuster that she will be referred to. She was encouraged to return with worsening symptoms or concerns. She is agreeable to plan all question concerns answered she is discharged home in stable condition. Discharge Plan Triage Chief Complaint: Eye Problem ED Provider: Darrel Urena Dx/Rx/DC Orders Clinical Impression: Floaters in visual field Prescriptions: No Action NK Primary Care Provider: Care Physician,No Primary Referrals: Care Physician,No Primary [Primary Care Provider] - Raheem Mariscal MD [Med Staff - Active Staff] - Activity Restrictions/Additional Instructions: Follow-up with the case finishing machine adjuster they referred to on Friday call their office for an appointment. Return with worsening symptoms or concerns. Your CT of your head did not show any acute findings. Print Language: [place] Disposition Disposition: Home, Self Care
--- NOTE | 2024-12-04 23:22 | EX.ED.VIS.EY ---
HPI History of Present Illness Chief Complaint: Eye Problem Narrative Narrative: Patient is a 59-year-old female with no known significant past medical history who presented to the emergency department change in vision out of her right eye. States that last evening she was sitting on the deck and noted that she noted that she had floaters in her right eye and flashes as well. States that she is periodically getting what appears to be looking out of a teardrop on the lateral aspect of her vision out of her right eye. Patient denies any other symptoms denies any trauma denies any eye pain. PFSH PFSH Home Medications ?Medication ?Instructions ?Recorded ?Last Taken ?Type NK 12/04/24 Unknown History Allergy/AdvReac Type Severity Reaction Status Date / Time levofloxacin (From Levaquin) Allergy Other Verified 12/04/24 21:39 Family History Mother Hypertension Anxiety Father Aneurysm of gastric artery Anxiety Social History Smoking Status: Former smoker alcohol intake: never ROS ROS ED ROS Narrative Constitutional: Denies any fevers, chills, headaches Eyes: Complains of change in vision as noted above Cardiovascular: Denies chest pain Respiratory: Denies shortness of breath Abdomen: Denies nausea vomiting diarrhea Neurological: Denies any numbness, weeks, tingling Musculoskeletal: Denies back pain Skin: Denies any rashes or lesions EXAM Physical Exam Narrative Exam Narrative: General: Patient lying in bed rest comfortably did not appear to be acute distress Head: Atraumatic, normocephalic Eyes: PERRL bilaterally, EOMI by, no conjunctival injection noted Neck: Soft, supple, trachea midline Cardiovascular: Regular rate and rhythm no murmurs gallops rubs are noted Respiratory: Clear to auscultation bilaterally Abdomen: Soft, nondistended, tender to palpation Extremities: +5/5 strength noted in the bilateral upper and lower extremities, radial pulses +2/4 in the bilateral extremities, no pedal edema on exam Neurological: Patient follow commands and that she was at [facility] years 2024. NIH of 0 GCS 15 Skin: Warm, dry, intact no rashes or lesions noted Const Vital Signs: 12/04/24 21:38 Temperature 98 F Temperature Source Oral Pulse Rate 86 Respiratory Rate 18 Blood Pressure 140/79 H Blood Pressure Mean 99 Pulse Ox 98 Oxygen Delivery Method Room Air MDM MDM MDM Narrative Medical decision making narrative: Patient is a 59-year-old female who presented to the emergency department the chief complaint of flashes and floaters out of her right eye. On the differential diagnosis includes but not limited to retinal detachment, central retinal artery occlusion, central retinal vein occlusion, acute angle-closure glaucoma. Once workup is obtained reviewed she will be reevaluated. Patient had her eye anesthetized with tetracaine followed by fluorescein stain. No evidence of corneal abrasion. Intraocular pressure was normal at 14. Bedside ultrasound was performed and showed no evidence of large retinal detachment. Patient visual acuity test on the right eye was 20/15 out of the left eye was 20/20 Called on-call frame wirer Dr. Mariscal who states that she can call the office on Friday and they will get her in to be evaluated. Patient CT head was reviewed and showed no acute intracranial processes. Discussed results with the patient she would like to go home at this point in time. She once again was advised to follow-up with the frame wirer that she will be referred to. She was encouraged to return with worsening symptoms or concerns. She is agreeable to plan all question concerns answered she is discharged home in stable condition. Discharge Plan Triage Chief Complaint: Eye Problem ED Provider: Darrel Urena Dx/Rx/DC Orders Clinical Impression: Floaters in visual field Prescriptions: No Action NK Primary Care Provider: Care Physician,No Primary Referrals: Care Physician,No Primary [Primary Care Provider] - Raheem Mariscal MD [Med Staff - Active Staff] - Activity Restrictions/Additional Instructions: Follow-up with the frame wirer they referred to on Friday call their office for an appointment. Return with worsening symptoms or concerns. Your CT of your head did not show any acute findings. Print Language: Citizen Of [place] Disposition Disposition: Home, Self Care
[2024-12-04 23:58] VITALS: BP 121/81; PULSE 69; RESP 12; TEMP 36.6; O2SAT 100
== END 2024-12-04 23:58 | disposition home or self-care (01) ==
PROVIDERS: Emergency Provider Emergency Medicine; Visit Provider Emergency Medicine
DX: H43.391 Other vitreous opacities, right eye (principal); Z87.891 Personal history of nicotine dependence
CPT/HCPCS: 70450; 99283